=== PATIENT | female | born 1975 ===

== ENCOUNTER → 2025-02-23 12:01 | Outpatient (CLI) | payer OTHER, SELFPAY ==
[2025-02-23 13:33] LABS: Appearance Urine UA CLEAR; Bilirubin Urine UA NEGATIVE (NEGATIVE); Color Urine UA YELLOW; Glucose Urine UA NEGATIVE (Negative); Ketones Urine UA NEGATIVE (NEGATIVE); Leukocyte Esterase Urine UA NEGATIVE (NEGATIVE); Nitrite Urine UA NEGATIVE (Negative); Occult Blood Urine UA NEGATIVE (Negative); Protein Urine UA NEGATIVE (Negative); Specific Gravity Urine UA 1.015 (1.000-1.035); Urobilinogen Urine UA 0.2 E.U./dL (0.2)
[2025-02-23 13:34] LABS: pH Urine UA 6.5 (4.5-8.0)
[2025-02-23 13:35] LABS: Culture Indicated Urine Cult Not Indicated
== END ==
PROVIDERS: Visit Provider Obstetrics & Gynecology Gynecology
DX: G89.29 Other chronic pain (principal); Z98.890 Other specified postprocedural states; N39.3 Stress incontinence (female) (male); N39.41 Urge incontinence; N95.1 Menopausal and female climacteric states; R10.20 Pelvic and perineal pain unspecified side
CPT/HCPCS: 81001

== ENCOUNTER → 2025-02-23 13:25 | Outpatient (CLI) | payer OTHER, SELFPAY ==
[2025-02-23 13:58] LABS: Add Manual Diff / Slide Review NO; Hematocrit 40.0 % (36-46); Hemoglobin 13.7 g/dL (12.0-16.0); Lymphocytes Absolute Auto 1900 /uL (1100-4500); Mean Corpuscular HGB Conc 34.2 % (30-36); Mean Corpuscular Hemoglobin 30.9 PG (26-34); Mean Corpuscular Volume 90.1 fL (80-100); Platelet Count 250 X10^3/uL (150-400)
[2025-02-23 14:16] LABS: Alanine Aminotransferase 22 IU/L (<35); Albumin 4.7 g/dL (3.5-5.0); Albumin Globulin Ratio 1.4 (1.0-2.8); Alkaline Phosphatase 64 U/L (38-126); Blood Urea Nitrogen 10 mg/dL (7-17); Calcium 9.6 mg/dL (8.4-10.2); Carbon Dioxide 25 mmol/L (22-32); Chloride 103 mmol/L (98-107); Estimated Glomerular Filt Rate > 60 mL/min (>60); Globulin 3.3 g/dL (1.7-4.1); Glucose 105 mg/dL (70-99); HEMOLYSIS < 15 (0-50); Potassium 3.9 mmol/L (3.4-5.1); Sodium 139 mmol/L (137-145); Total Protein 8.0 g/dL (6.3-8.2)
[2025-02-23 15:56] LABS: Follicle Stimulating Hormone 50.8 mIU/mL
== END ==
PROVIDERS: Referring Provider Obstetrics & Gynecology Gynecology; Visit Provider Obstetrics & Gynecology Gynecology
DX: N95.1 Menopausal and female climacteric states (principal); G89.29 Other chronic pain; R10.20 Pelvic and perineal pain unspecified side
CPT/HCPCS: 36415; 80053; 83001; 85025